=== PATIENT | female | born 1965 | race Caucasian/White ===

== ENCOUNTER 2018-04-21 16:17 | Inpatient (IN) ==
[2018-04-21] MEDS ORDERED: ASPIRIN PO ONE (16:31)
[2018-04-21 17:02] LABS: BASO# 0.02 X1000 (0.0-0.2); BASO% 0.2 % (0.0-0.8); EOS# 0.16 X1000 (0.0-0.7); HEMATOCRIT 43.8 % (37.0-47.0); HEMOGLOBIN 14.4 g/dL (12.0-16.0); LYMPH# 2.41 X1000 (1.2-3.4); LYMPH% 30.1 % (20.5-51.1); MCH 29.9 PG (27-31); MCHC 32.9 g/dL (33-37); MCV 91.1 FL (81-99); MONO# 0.39 X1000 (0.11-0.59); MONO% 4.9 % (1.7-9.3); MPV 10.6 FL (7.4-10.4); NEUT# 5.03 X1000 (1.4-6.5); NEUT% 62.8 % (42.2-75.2); PLT 231 X1000 (130-400); RBC 4.81 XMIL (4.2-5.4); RDW 14.4 % (11.5-14.5); WBC 8.01 X1000 (4.8-10.8)
[2018-04-21 17:09] LABS: INR 0.9; PROTIME 12.9 Seconds (11.0-16.0)
[2018-04-21 17:10] LABS: PTT 24.7 Seconds (22.3-41.8)
--- NOTE | 2018-04-21 17:27 | PROVIDER DOCUMENTATION ---
HPI-Chest Pain - General Chief Complaint: Chest Pain Stated Complaint: CP-HAS HAD HEART SURGERY Time Seen by Provider: 04/21/18 17:13 Source: patient Allergies/Adverse Reactions: Patient Allergies Allergy/AdvReac Type Severity Reaction Status Date / Time Sulfa (Sulfonamide Allergy Intermediate HIVES Verified 07/24/16 19:48 Antibiotics) Home Medications: Home Medication List Medication Instructions Recorded Confirmed Last Taken Type Levothyroxine [Synthroid] 200 microgm PO DAILY 12/10/12 07/24/16 02/14/16 History Metoprolol [Lopressor] 50 mg PO DAILY 12/10/12 07/24/16 02/14/16 History Albuterol Sulfate [Ventolin Hfa] 60 puff IH BID 06/03/15 07/24/16 02/14/16 History Aspirin 325 mg PO QHS 06/03/15 07/24/16 02/14/16 History Linaclotide [Linzess] 145 mcg PO DAILY 06/03/15 07/24/16 02/14/16 History Venlafaxine HCl 25 mg PO BID 06/03/15 07/24/16 02/14/16 History ATORVAstatin [Lipitor] 40 mg PO QHS #30 tablet 06/06/15 07/24/16 02/14/16 Rx Amlodipine Besylate/Benazepril 1 each PO DAILY 07/14/15 07/24/16 02/14/16 History [Lotrel 10/20 mg Capsule] Metformin [Glucophage] 500 mg PO BID CC 02/15/16 07/24/16 02/15/16 History Nicotine Patch [Nicoderm Patch] 14 mg TD DAILY #7 patch.td24 02/16/16 07/24/16 Unknown Rx Omeprazole [Prilosec] 40 mg PO DAILY@0700 #15 capsule 02/16/16 07/24/16 Unknown Rx Ranolazine E.r. [Ranexa] 500 mg PO BID #60 tablet 02/16/16 07/24/16 Unknown Rx Divalproex [Depakote] 250 mg PO BID #60 tablet 07/25/16 Unknown Rx - History of Present Illness-CP Nature of Presenting Problem: 52yof present to ER with c/o midsternal chest pain radiating to the back onset yesterday. Pt tearful. Pt reports SOB. Pt she became diaphoretic earlier today. Pt reports a bypass 10 years ago. Location: reports: substernal Chest Pain Radiation: reports: back Quality of Pain: reports: sharp, stabbing Onset/Duration: 24 hours ago Timing: still present, constant Associated Symptoms: reports: back pain, diaphoresis, shortness of breath. denies: edema, fever/chills, nausea, syncope, vomiting Nitro Today/Relief: no nitro taken today Aspirin Treatment Today: no aspirin today Review of Systems - Adult - REVIEW OF SYSTEMS - ADULT Constitutional: reports: no symptoms reported. denies: chills, fever Eyes: reports: no symptoms reported Ears, Nose, Mouth & Throat: reports: no symptoms reported Cardiovascular: reports: see HPI, chest pain, orthopnea. denies: palpitations, syncope Respiratory: reports: see HPI, dyspnea on exertion, shortness of breath. denies : excessive sputum production Gastrointestinal: reports: no symptoms reported. denies: abdominal pain, diarrhea, nausea, vomiting Genitourinary: reports: no symptoms reported Musculoskeletal: reports: back pain Integumentary: reports: no symptoms reported Neurological: reports: headache/migraines. denies: dizziness/vertigo, numbness , paresthesia, seizure, slurred speech Psychiatric: reports: no symptoms reported Endocrine: reports: no symptoms reported Hematologic/Lymphatic: reports: no symptoms reported Allergic/Immunologic: reports: no symptoms reported All Other Systems: Reviewed and Negative Past History - Adult - PAST MEDICAL HISTORY-ADULT Review of Records: reports: Old Records Reviewed, Nursing Assessment Review, Medications Reviewed Cardiovascular: reports: CAD, CHF, HTN, OR Respiratory: reports: asthma, COPD Musculoskeletal: reports: chronic pain (back ) Psychiatric: reports: anxiety Endocrine/Immune: reports: thyroid disorder - PRIOR SURGERIES/PROCEDURES Surgical/Procedure History: reports: CABG, cholecystectomy, tonsillectomy, orthopedic (extremity) (right foot ), other (C5/C6 fusion ) - IMMUNIZATION STATUS Childhood Immunizations: See Nurse Assessment Flu Vaccine: See Nurse Assessment Physical Exam-General - PHYSICAL EXAM-ADULT Initial Vital Signs Reviewed: Yes - CONSTITUTIONAL General Appearance: alert, mild distress, other (tearful) - EYES Eyes: PERRL/EOMI, pink conjunctivae - HEAD, EARS, NOSE, MOUTH & THROAT HENMT: normocephalic/atraumatic, moist mucous membranes, normal ENT inspection - NECK Neck: full range of motion, supple, normal inspection - RESPIRATORY Respiratory: chest non-tender, no respiratory distress, no accessory muscle use , wheezing (bilaterally) - CARDIOVASCULAR Cardiovascular: regular rate, rhythm, no edema - GASTROINTESTINAL (ABDOMEN) Abdominal Exam: normal bowel sounds, non tender, soft - LYMPHATIC Lymphatic: no adenopathy - MUSCULOSKELETAL Back Exam: normal inspection, no CVA tenderness, no vertebral tenderness Extremity: normal range of motion, non-tender, normal gait, normal inspection, no pedal edema, normal capillary refill - SKIN Integumentary: normal color, warm/dry - PSYCHIATRIC Psych/Mental Status: oriented x 3 - HEART Score HEART Score: History: Moderately Suspicious HEART Score: ECG: Non-Specific Repolarization Disturbance/LBBB/PM HEART Score: Age: 45-65 Years HEART Score: Risk Factors for Atherosclerotic Disease: > or = 3 Risk Factors or History of Atherosclerotic Disease HEART Score: Troponin: < or = Normal Limit Total HEART Score:: 5 Progress - PLAN OF CARE/RESULTS Progress/Plan/Lab Results: Vital Signs - 8 hr 04/21/18 16:27 Temperature 97.9 F Pulse Rate 72 Respiratory Rate 20 Blood Pressure 134/75 O2 Sat by Pulse Oximetry 100 Laboratory Results - last 24 hr 04/21/18 04/21/18 04/21/18 16:35 16:35 16:35 WBC 8.01 RBC 4.81 Hgb 14.4 Hct 43.8 MCV 91.1 MCH 29.9 MCHC 32.9 L RDW Std Deviation 14.4 Plt Count 231 MPV 10.6 H Immature Gran % (Auto) 0.0 Neut % (Auto) 62.8 Lymph % (Auto) 30.1 [place] % (Auto) 4.9 Eos % (Auto) 2.0 Baso % (Auto) 0.2 Immature Gran # (Auto) 0.00 Neut # (Auto) 5.03 Lymph # (Auto) 2.41 [place] # (Auto) 0.39 Eos # (Auto) 0.16 Baso # (Auto) 0.02 PT INR PTT (Actin FS) D-Dimer, Quantitative Sodium 138 Potassium 4.1 Chloride 100 Carbon Dioxide 24 L Anion Gap 14 BUN 6 L Creatinine 0.9 Estimated GFR/1.73 m2 > 60 BUN/Creatinine Ratio 7 Glucose 112 H Calculated Osmolality 274 Calcium 9.2 Total Bilirubin 0.26 AST 21 ALT 19 Alkaline Phosphatase 61 Creatine Kinase 65 Troponin T [id number] Pept 1244 H Total Protein 6.5 Albumin 4.1 Globulin 2.4 Albumin/Globulin Ratio 1.7 04/21/18 04/21/18 04/21/18 16:35 16:35 16:35 WBC RBC Hgb Hct MCV MCH MCHC RDW Std Deviation Plt Count MPV Immature Gran % (Auto) Neut % (Auto) Lymph % (Auto) [place] % (Auto) Eos % (Auto) Baso % (Auto) Immature Gran # (Auto) Neut # (Auto) Lymph # (Auto) [place] # (Auto) Eos # (Auto) Baso # (Auto) PT 12.9 INR 0.90 PTT (Actin FS) 24.7 D-Dimer, Quantitative < 0.27 Sodium Potassium Chloride Carbon Dioxide Anion Gap BUN Creatinine Estimated GFR/1.73 m2 BUN/Creatinine Ratio Glucose Calculated Osmolality Calcium Total Bilirubin AST ALT Alkaline Phosphatase Creatine Kinase Troponin T < 0.010 [id number]-Cxfuycrgmcy Pept Total Protein Albumin Globulin Albumin/Globulin Ratio Orders Category Date Time Status Cardiac Monitoring DIRECTED Care 04/21/18 16:31 Active Oxygen Therapy- ED Nursing DIRECTED Care 04/21/18 16:31 Active Saline Loc NOW Care 04/21/18 16:31 Active CHEST-2 VIEWS [RAD] Stat Exams 04/21/18 16:32 Taken CBC WITH ELECTRONIC DIFF [HEME] Stat Lab 04/21/18 16:35 Completed CK PROFILE [SP CHEM] Stat Lab 04/21/18 16:35 Completed COMPREHENSIVE METABOLIC PANEL [CHEM] Stat Lab 04/21/18 16:35 Completed D-DIMER [COAG] Stat Lab 04/21/18 16:35 Completed PRO B-NATRIURETIC PEPTIDE Stat Lab 04/21/18 16:35 Completed PROTIME WITH INR [COAG] Stat Lab 04/21/18 16:35 Completed PTT [COAG] Stat Lab 04/21/18 16:35 Completed TROPONIN T Stat Lab 04/21/18 16:35 Completed Aspirin Med 04/21/18 16:31 Discontinued 325 mg PO NOW ONE Nitroglycerin Sl [Nitroglycerin] Med 04/21/18 17:19 Active 0.4 mg SL Q5M PRN PRN CP/SOB/Palp >45 yrs of Age Stat Oth 04/21/18 16:31 Ordered EKG [EKG] Stat Ther 04/21/18 16:31 Ordered Result Diagrams: 04/21/18 16:35 04/21/18 16:35 - REASSESSMENT Reassessment #1 Time Reassessed: 18:07 (Pt states the pain her chest has eased following 3 SL nitros but still has pain in her back. Updated pt of results) Status: improving Reassessment #2 Time Reassessed: 18:23 (Pt updated of admission status, agrees with plan.) - CONSULTS/PCP/HOSPITALIST Notification #1 *Consult/PCP/Hospitalist*: hospitalist Time Discussed: 18:17 Reason/Comments: consult with YULISSA Maloney -- states it will be nightshift hospitalist Consult Disposition: Admit Departure - Departure Date of Disposition Decision: 04/21/18 Time of Disposition Decision: 18:23 DIAGNOSIS: Chest pain Qualifiers: Chest pain type: unspecified Qualified Code(s): R07.9 - Chest pain, unspecified Disposition: ADMITTED INPATIENT 09 Certified Medical Emergency: Emergent Condition: Good Referrals and Follow-Ups: Юлия Lund MD [Primary Care Provider] - - Critical Care Note This patient required my direct & personal management of CC.: No Attestation - Physician/ WILIAN Attestation Patient care was provided by Advanced Practice Provider:: Yes Advanced Practice Provider:: Aurelia Heath Advanced Practice Provider documentation review:: The Mid-level provider documentation, treatment plan and medical decision making was reviewed by the physician who agrees with all treatment and medical decision making by the P. The physician spent face to face time with patient:: No Advanced Practice Provider documentation review:: Supervising physician onsite and consulted in the evaluation and care of this patient. The physician did not have a face to face encounter with the patient.
[2018-04-21] MEDS ORDERED: ASPIRIN ONE (17:36)
[2018-04-21] MEDS ORDERED: NITROGLYCERIN ONE (17:36)
[2018-04-21] MEDS: NITROGLYCERIN SL PRN ×3 (17:38→17:53)
[2018-04-21 17:39] LABS: AGAP 14; ALB/GLOB RATIO 1.7; ALBUMIN 4.1 g/dL (3.5-5.0); ALKALINE PHOSPHATASE 61 U/L (32-104); BUN 6 mg/dL (8-22); CALCIUM 9.2 mg/dL (8.8-10.2); CHLORIDE 100 mmol/L (98-107); CK PROFILE 65 U/L (24-173); COSMO 274; CREATININE 0.9 mg/dL (0.5-0.9); ESTIMATED GFR > 60; GLUCOSE 112 mg/dL (70-104); GOT 21 U/L (10-30); GPT 19 U/L (10-36); POTASSIUM 4.1 mmol/L (3.5-5.1); SODIUM 138 mmol/L (136-145); TCO2 24 mmol/L (25-35); TOTAL BILIRUBIN 0.26 mg/dL (0.20-1.00); TOTAL PROTEIN 6.5 g/dL (6.3-8.3)
--- NOTE | 2018-04-21 17:45 | ED EKG INTERP ---
This chart was entered by Dolly Curran Scribe, acting as scribe for Emiliano Chapman MD. EKG Interpretation - EKG Time of EKG reading by physician:: 16:28 EKG Read and Signed by:: Emiliano Chapman EKG Interpretation (*Must complete 3 of following elements*): Abnormal Rate: 74 Rhythm: nsr [place]: normal QRS: other (possible left atrial enlargment) [place] Interval: normal ST Wave: normal Comments: nonspecific T wave abnormality Attestation - Physician/ WILIAN Attestation Patient care was provided by Advanced Practice Provider:: Yes Advanced Practice Provider documentation review:: The Mid-level provider documentation, treatment plan and medical decision making was reviewed by the physician who agrees with all treatment and medical decision making by the MLP. The physician spent face to face time with patient:: No Advanced Practice Provider documentation review:: Supervising physician onsite and consulted in the evaluation and care of this patient. The physician did not have a face to face encounter with the patient. This chart was documented by the indicated scribe, (Dolly Curran Scribe) and accurately reflects the services I performed and decisions made by me, Emiliano Chapman MD, as attested by the provider's signature.
--- NOTE | 2018-04-21 18:56 | Diag Imaging Result Doc PS360 ---
EXAM: CHEST-2 VIEWS - 04/21/2018 HISTORY: CHEST PAIN TECHNIQUE: Chest two views COMPARISON: 01/28/2017 FINDINGS: Heart size appears upper normal and mildly increased compared to prior. There are sternal wires from previous surgery again seen. The lungs appear clear. There is no pleural effusion or pneumothorax identified. IMPRESSION: Mild interval increase in heart size, which is now upper normal. No other evidence of acute disease. Electronically signed by Stef Burdick 04/21/2018 6:53 PM
[2018-04-21] MEDS ORDERED: TYLENOL PO PRN (20:07)
[2018-04-21] MEDS ORDERED: ZOFRAN IV PRN (20:07)
[2018-04-21] MEDS ORDERED: LOVENOX SUBQ SCH (20:15)
[2018-04-21 20:37] LABS: HEMOGLOBIN A1C 5.9 % (4.8-6.0)
[2018-04-21] MEDS ORDERED: LIPITOR PO SCH (21:00)
[2018-04-21] MEDS ORDERED: LASIX IV ONE (22:56)
[2018-04-22] MEDS ORDERED: NS 1,000 ML IV ONE (00:25)
--- NOTE | 2018-04-22 01:06 | HISTORY AND PHYSICAL ---
ADDENDUM The patient presented with chest pain. She has started the last 24 hours. Also, some shortness of breath. She reports a CABG about 10 [address] ago[address] She sees Dr. Saenz, I believe. She is still smokes, probably less than a pack a day. Workup in the ER was unremarkable. She does have some ST changes, but they are nonspecific. She had some ST elevation maybe VA depression in II, III, and aVF, and some T-wave changes in her lateral leads. Her previous EKGs showed 2017 looked similar, she had some T-wave inversions previously. In any case, patient was evaluated, her exam was unremarkable. No edema. No rales. Regular rate and rhythm. Plan will be to rule out, monitor, and pursue myocardial perfusion. We will get a Cardiology consult in the morning and decide further. cc: Kelby Fitzgerald MD
[2018-04-22] MEDS: NICODERM PATCH TD PRN ×2 (01:22→10:58)
[2018-04-22] MEDS: HUMALOG SUBQ SCH ×3 (01:24→11:28)
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
[2018-04-22] MEDS: VENTOLIN HFA INH SCH ×2 (03:30→10:06)
[2018-04-22 05:06] LABS: HEMATOCRIT 45.1 % (37.0-47.0); HEMOGLOBIN 14.6 g/dL (12.0-16.0); MCH 29.7 PG (27-31); MCHC 32.4 g/dL (33-37); MCV 91.9 FL (81-99); MPV 10.4 FL (7.4-10.4); RBC 4.91 XMIL (4.2-5.4); RDW 14.4 % (11.5-14.5); WBC 9.73 X1000 (4.8-10.8)
[2018-04-22] MEDS ORDERED: SYNTHROID PO SCH (07:00)
[2018-04-22] MEDS ORDERED: PRILOSEC PO SCH (07:00)
[2018-04-22 07:25] LABS: AGAP 14; BUN 9 mg/dL (8-22); CALCIUM 8.9 mg/dL (8.8-10.2); CHLORIDE 99 mmol/L (98-107); COSMO 279; CREATININE 0.9 mg/dL (0.5-0.9); ESTIMATED GFR > 60; GLUCOSE 115 mg/dL (70-104); SODIUM 140 mmol/L (136-145); TCO2 27 mmol/L (25-35)
[2018-04-22 07:26] LABS: POTASSIUM 3.7 mmol/L (3.5-5.1)
--- NOTE | 2018-04-22 08:01 | EKG Report ---
Test Performed on : 04/22/2018 06:38:42 AM Test Reason : cp Blood Pressure : / mmHG Vent. Rate : 074 BPM Atrial Rate : 074 BPM P-R Int : 166 ms QRS Dur : 092 ms QT Int : 428 ms P-R-T Axes : 074 078 101 degrees QTc Int : 475 ms Normal sinus rhythm. Possible Left atrial enlargement Nonspecific T wave abnormality Abnormal ECG When compared with ECG of 21-APR-2018 16:42, (Unconfirmed) Questionable change in QRS axis Nonspecific T wave abnormality now evident in Anterior leads QT has lengthened Unconfirmed Result
--- NOTE | 2018-04-22 08:12 | EKG Report ---
Test Performed on : 04/21/2018 4:28:55 PM Test Reason : CHEST PAIN Blood Pressure : / mmHG Vent. Rate : 074 BPM Atrial Rate : 074 BPM P-R Int : 178 ms QRS Dur : 094 ms QT Int : 422 ms P-R-T Axes : 065 076 103 degrees QTc Int : 468 ms Normal sinus rhythm. Possible Left atrial enlargement Nonspecific T wave abnormality Abnormal ECG When compared with ECG of 24-JUL-2016 19:24, Nonspecific T wave abnormality now evident in Lateral leads Unconfirmed Result
[2018-04-22] MEDS ORDERED: LEXISCAN ONE (08:20)
[2018-04-22] MEDS ORDERED: AMINOPHYLLINE ONE (09:10)
[2018-04-22] MEDS: LOPRESSOR PO SCH ×2 (10:58→10:59)
[2018-04-22] MEDS: LOTREL 5/10 MG PO SCH ×2 (10:58→10:59)
[2018-04-22] MEDS: LINZESS PO SCH ×2 (10:58→10:59)
[2018-04-22] MEDS ORDERED: LASIX IV ONE (11:54)
--- NOTE | 2018-04-22 13:23 | CONSULTATION ---
DATE OF CONSULTATION: 04/22/2018 IMPRESSION: 1. Episode of chest discomfort lasting several hours. Cardiac enzymes negative and ECG benign. 2. Atherosclerotic coronary disease with history of previous coronary bypass grafting. Last coronary angiographic study performed in May of 2015 indicated 30 to 40 percent left main coronary stenosis, occluded left anterior descending coronary proximally, occluded ramus intermedius branch and ostium, normal left circumflex coronary, and normal dominant right coronary. Saphenous vein graft to ramus intermedius was occluded. Left internal mammary artery graft to left anterior descending coronary was widely patent. Patient managed medically. Left ventricular ejection fraction at that time was 65%. 3. Elevated B type natriuretic peptide level. I suspect she very well may be suffering from congestive heart failure with a normal left ventricular ejection fraction. This might be related to hypertensive cardiovascular disease or obstructive sleep apnea or obesity. 4. Hypertension. 5. Chronic obstructive pulmonary disease. 6. Obstructive sleep apnea. RECOMMENDATIONS: 1. Followup on Lexiscan sestamibi study already completed. If negative, would be reasonable for patient to be discharged to home. 2. Echocardiography. 3. Gentle diuresis. HISTORY: This 52-year-old white female with past history of previous coronary bypass grafting, hypertension, obesity, type 2 diabetes mellitus, hyperlipidemia, COPD, and obstructive sleep apnea was admitted to the emergency room yesterday after she presented with chest discomfort. She describes discomfort in the center of the chest catheterized as pressure which radiated around to her back. There was some associated shortness of breath. Discomfort lasted several hours and resolved in the emergency room. She relates that for the last 3 days she has had a tendency for exertional shortness of breath with modest activity. She is not very active physically due to chronic back disorder. She also had some cough which has been nonproductive. She has obstructive sleep apnea but has not yet obtained CPAP. PAST MEDICAL HISTORY: 1. Atherosclerotic coronary disease as outlined above. 2. Hypertensive cardiovascular disease. 3. Type 2 diabetes mellitus. 4. Hyperlipidemia. 5. Hypothyroidism. 6. Chronic obstructive pulmonary disease. 7. Obstructive sleep apnea. PAST SURGICAL HISTORY: 1. Tonsillectomy. 2. Unspecified right ankle surgery. 3. Unspecified left leg surgery. 4. Cervical fusion. 5. Cholecystectomy. ALLERGIES: She is allergic or intolerant to sulfa. MEDICATIONS PRIOR TO ADMISSION: As listed. SOCIAL HISTORY: She is . She is disabled due to chronic back disorder. She does not smoke or use alcohol. FAMILY HISTORY: Positive for coronary disease. REVIEW OF SYSTEMS: Pulmonary: Noteworthy for dyspnea for the last several days as well as nonproductive cough. Gastrointestinal: Negative. Constitutional: Negative. Remainder of review of systems negative/noncontributory with 14 total systems reviewed. PHYSICAL EXAMINATION: General: This is an obese middle-aged female in no distress. Vital Signs: Blood pressure 129/59, heart rate 89, and weight 230 pounds. HEENT: Extraocular movements intact. Mucous membranes moist. Neck: Supple. Jugular venous distention is subtle but suggests central venous pressure of 8 to 10 cm. There are no carotid bruits. Chest: Clear to auscultation. Cardiac: Exam reveals regular rate and rhythm without appreciable murmur or gallop. Abdomen: Soft and nontender. Bowel sounds are normal. Extremities: Without edema. Neurologic: Reveals her to be alert and fully oriented. Speech is fluent. Moves all 4 extremities equally well. Skin: Warm and dry. Psychiatric: Reveals her mood to be appropriate. PERTINENT DATA: Twelve lead EKG demonstrates normal sinus rhythm. Left atrial abnormality and nonspecific T-wave abnormality. LABORATORY DATA: Sodium 140, potassium 3.7, chloride 99, carbon dioxide 27, BUN 14 and creatinine 0.9. Glucose 115. CPK 59. Followup CPK 58 and 65 respectively. Initial troponin less than 0.01. Followup troponin is less than 0.01 and less than 0.01 respectively. Pro B-natriuretic peptide level 1244. cc: Carlos Stauffer MD
--- NOTE | 2018-04-22 13:55 | Diag Imaging Result Document ---
PROCEDURE NAME: MYOCARDIAL PERF SCAN, STR/REST - 04/22/2018 PROCEDURE: Lexiscan Cardiolite stress test. SUMMARY: Lexiscan was infused per standard protocol. The patient had nausea following Lexiscan infusion, and 125 mg of aminophylline was given intravenously. There was no chest pain. Stress electrocardiogram was negative for ischemia. Then 14.8 mCi of Cardiolite was injected for the rest phase, and 45.1 mCi of Cardiolite was injected for the stress phase. Gated SPECT images were obtained in standard views. Images revealed significant chest wall attenuation. There is normal left ventricular cavity size. There is no evidence of ischemia. There is small-sized low-grade fixed defect in the left ventricular apex suggestive of attenuation defect. Left ventricular ejection fraction 66%. Wall motion was normal. CONCLUSIONS: 1. No chest pain. 2. Negative Lexiscan stress electrocardiogram. 3. Myocardial perfusion images revealed no evidence of ischemia. 4. There is low-grade small-sized fixed defect in the left ventricular apex suggestive of attenuation defect. Low probability of scar. There is significant chest wall attenuation. 5. Left ventricular ejection fraction 66%. cc: MD Edin Blakely CRNP
--- NOTE | 2018-04-22 15:16 | ECHO REPORT ---
ORDER DATE: 04/22/2018 ECHOCARDIOGRAPHIC MEASUREMENTS: 1. Interventricular septum 1.3. 2. Left ventricular posterior wall 1.2. 3. Diastolic diameter 3.8. 4. Aorta 3.2. 5. Left atrium 3.6. SUMMARY: 1. Aortic valve leaflets are trileaflet. 2. Mitral valve leaflets are normal. There is moderate mitral annular calcification. 3. Pulmonic valve was normal. 4. Tricuspid valve was normal. 5. Technically suboptimal study. Poor apical windows. 6. There is mild tricuspid regurgitation. Peak velocity across the tricuspid valve was 2.2 m/sec. 7. There is mild mitral regurgitation. 8. Peak velocity across the aortic valve less than 2 m/sec. By Doppler studies, there is no aortic stenosis or regurgitation. 9. Normal left ventricular cavity size. Estimated ejection fraction of 50% to 55%. 10. Endocardium not well visualized in all views. Would recommend a MUGA scan or Definity to accurately assess left ventricular systolic function. 11. There is no pericardial effusion or obvious intracardiac mass or thrombus. cc: MD Joyce Blakely PA
[2018-04-22 16:31] VITALS: BP 122/70
[2018-04-22] MEDS ORDERED: ATIVAN PO ONE (16:42)
[2018-04-22] MEDS ORDERED: ASPIRIN PO SCH (21:00)
--- NOTE | 2018-04-23 06:40 | DISCHARGE SUMMARY ---
ADMISSION DATE: 04/21/2018 DISCHARGE DATE: 04/22/2018 DISPOSITION: Home. FOLLOWUP: 1. Dr. Lund. 2. Dr. Stauffer. CONSULTATION DURING THIS ADMISSION: Cardiology was consulted. The patient was seen by Dr. Stauffer. INVASIVE PROCEDURES DONE DURING THIS ADMISSION: None. IMAGING STUDIES OF SIGNIFICANCE: 1. A chest x-ray did show mild interval increase in heart size, which is now upper normal. 2. A stress test showed a low grade small sized fixed defect in the left ventricular apex suggestive of attenuation defect, low probability of scar. There was no evidence of ischemia. Ejection fraction was 66%. 3. Echocardiogram showed an ejection fraction of about 60% to 55%. No major valvular abnormality. ADMISSION DIAGNOSES: 1. Chest pain. 2. Hypertension. 3. Dyslipidemia. 4. Tobacco abuse. 5. Hypothyroidism. DIAGNOSES AT THE TIME OF DISCHARGE: 1. Atypical chest pain with unremarkable echo and stress test, likely noncardiac. 2. History of coronary artery disease in the past, status post coronary artery bypass graft 10 years ago. 3. Hypothyroidism. 4. Dyslipidemia. 5. Chronic tobacco abuse. The patient has been counseled. 6. Diabetes mellitus, controlled. DISCHARGE MEDICATIONS: 1. Levothyroxine 200 mcg daily. 2. Metoprolol 50 mg daily. 3. Linzess 145 mcg daily. 4. Aspirin 325 p.o. at bedtime. 5. Atorvastatin 40 mg at bedtime. 6. Metformin 500 b.i.d. 7. Omeprazole 40 mg daily. 8. Furosemide 40 mg daily. PRESENTING COMPLAINT: Chest pain. HISTORY OF PRESENTING COMPLAINT: Ms. Grigsby is a 52-year-old female with a history of coronary artery disease status post CABG about 10 years ago, presented to the emergency department because of ongoing chest pain. Because of her history and risk factors, it was deemed necessary to admit her for cardiac risk stratification. HOSPITAL COURSE: Ms. Grigsby was admitted to the medical floor under tele monitoring. Troponins were trended about 6 times, which were negative. EKGs were also repeated multiple times, which were unremarkable. Tele monitoring did not show any ST-segment or T-waves abnormality. He did undergo echocardiogram and stress test, both of which came back negative. The patient was seen by Cardiology and was recommended that it will be reasonable to discharge her once investigations are normal. This evening when I saw Ms. [place], she refers to be feeling a lot better. Denies any complaints and she was in stable condition for discharge. She actually asked if she could be discharged. From medical standpoint, I think she is stable for discharge. She will follow up with her primary nurse midwife who is Dr. Saenz. At the time of the discharge, her vital signs were blood pressure is 122/70, pulse 65, respirations 16, temperature 98.1 degrees. The patient was saturating 100%. Her physical exam is completely unremarkable. Ms. Grigsby is therefore stable for discharge. All of the discharge instructions have been discussed with her. We particularly stressed the importance of smoking cessation. TIME SPENT: Time spent for discharge was 35 minutes. cc: MD Юлия Holley MD Luis N. Villanueva, MD
[2018-04-23] MEDS ORDERED: LASIX PO SCH (09:00)
[2018-04-23] MEDS ORDERED: KLOR-CON PO SCH (09:00)
== END 2018-04-22 18:46 | disposition home or self-care (01) | DRG 313 ==
LOC: ED 16:17 → SUATTDRO 20:28 → 3N 20:28
PROVIDERS: ATTEND Internal Medicine
CPT/HCPCS: 71020; 71046; 78452; 80048; 80053; 80061; 82550; 82948; 83036; 83721; 83735; 83880; 84484; 85025; 85027; 85379; 85610; 85730; 93005; 93010; 93017; 93306; 94640; 94761; 99285; A9270; A9500; J0280; J0820; J1650; J1815; J1940; J2405; J2785; J7030; XXXXX